=== PATIENT | female | born 1975 | race Caucasian/White ===

== ENCOUNTER 2023-06-01 14:41 | Emergency (ER) | payer OTHER ==
[~2023-06-01] VITALS: Ht 149.9 cm; Wt 51.7 kg
[2023-06-01 15:08] VITALS: BP 130/95; PULSE 69; RESP 20; TEMP 98; O2SAT 99
--- NOTE | 2023-06-01 15:15 | NUR ---
PT AMBULATED TO BED 9
[2023-06-01 15:40] VITALS: O2SAT 99
--- NOTE | 2023-06-01 15:40 | NUR ---
48YO FEMALE PT C/O INCREASED ABD PAIN AND HEADACHE XTODAY. REPORTS SUDDEN INITIAL ONSET [id number] W/ DIZZINESS, GEN WEAK AND N/V X1-blood. DENIES DYSURIA, DIARRHEA, CHEST PAIN, SOB OR PAIN RELIEF AFTER IBUPROFEN. ABD NON TENDER. PT AAOX4, RESPIRATIONS EVEN AND UNLABORED. AMB W/ STEADY GAIT. HOB POSITIONED PER COMFORT. CALL LIGHT WITHIN REACH. HX: DENIES NKA
--- NOTE | 2023-06-01 15:40 | NUR ---
lab at bedside
[2023-06-01] MEDS ORDERED: KETOROLAC 30 MG/ML VIAL IM ONE (16:00)
[2023-06-01] MEDS ORDERED: ONDANSETRON 4 MG ODT PO ONE (16:00)
[2023-06-01 16:12] LABS: BASOPHILS % (AUTO) 0.6 % (0.0-2.0); EOSINOPHILS # (AUTO) 0.1 K/uL (0-0.4); EOSINOPHILS % (AUTO) 1.8 % (0.0-4.0); HEMATOCRIT 39.6 % (36-48); HEMOGLOBIN 13.3 g/dL (12.0-16.0); LYMPHOCYTES % (AUTO) 16.3 % (20.5-51.1); MEAN CORPUSCULAR HEMOGLOBIN 30 pg (27-31); MEAN CORPUSCULAR HGB CONC 34 g/dL (33-37); MEAN CORPUSCULAR VOLUME 89.3 fL (80-94); MONOCYTES # (AUTO) 0.4 K/uL (0.8-1.0); MONOCYTES % (AUTO) 5.7 % (1.7-9.3); NEUTROPHILS # (AUTO) 4.8 K/uL (1.8-7.7); NEUTROPHILS % (AUTO) 75.6 % (42.2-75.2); PLATELET COUNT (AUTO) 197 K/uL (140-450); RED BLOOD CELL COUNT(AUTO) 4.44 MIL/uL (4.20-5.40); WHITE BLOOD COUNT (AUTO) 6.3 K/uL (4.8-10.8)
[2023-06-01 16:16] LABS: APPEARANCE,URINE CLEAR (CLEAR); BILIRUBIN,URINE NEGATIVE (NEGATIVE); BLOOD, URINE NEGATIVE (NEGATIVE); COLOR,URINE YELLOW (YELLOW); LEUKOCYTE ESTERASE ,URINE TRACE (NEGATIVE); NITRITE, URINE NEGATIVE (NEGATIVE); UGLUCOSE NEGATIVE (NEGATIVE)
[2023-06-01 16:24] LABS: RBC,URINE 0-5 /HPF (0-5); TRICHOMONAS,URINE None Seen /HPF (None Seen); YEAST,URINE None Seen /HPF (None Seen)
[2023-06-01 16:27] LABS: ANION GAP 11.2 (8-16); CARBON DIOXIDE 29.9 mmol/L (21-32); CREATININE 0.9 mg/dL (0.6-1.3); POTASSIUM 4.1 mmol/L (3.5-5.1); TOTAL BILIRUBIN 0.4 mg/dL (0.0-1.0)
[2023-06-01] MEDS ORDERED: CEPH-588 PO (17:12)
[2023-06-01] MEDS ORDERED: ONDA-188 SL (17:12)
[2023-06-01] MEDS ORDERED: IBUP-2213 PO (17:12)
[2023-06-01 17:34] VITALS: BP 128/88; PULSE 69; RESP 20; TEMP 98; O2SAT 100
--- NOTE | 2023-06-01 17:34 | NUR ---
Patient discharged with v/s stable. Written and verbal after care instructions FOR ABD PAIN, UTI AND GENERAL HEADACHE given and explained. Patient alert, oriented and verbalized understanding of instructions. Ambulatory with steady gait. All questions addressed prior to discharge. ID band removed. Patient advised to follow up with PMD. Rx of KELFEX,IBUPROFEN AND ZOFRAN ODT given. Opportunity to ask questions provided and answered.
--- NOTE | 2023-06-01 17:35 | NUR ---
The patient's care was reviewed and supervised by Mackenzie Mendoza, RN, RN.
== END 2023-06-01 17:34 | disposition home or self-care (01) ==
LOC: MED 14:41
DX: N39.0 Urinary tract infection, site not specified (principal); R11.2 Nausea with vomiting, unspecified; R51.9 Headache, unspecified; Z20.822 Contact with and (suspected) exposure to COVID-19; Z98.890 Other specified postprocedural states; Z79.899 Other long term (current) drug therapy; Z79.1 Long term (current) use of non-steroidal anti-inflammatories (NSAID); Z79.2 Long term (current) use of antibiotics
CPT/HCPCS: 36415; 80053; 81001; 81025; 83690; 85025; 87426; 96372; 99283; J1885; Q0162